=== PATIENT | female | born 1960 | race Caucasian/White ===

== ENCOUNTER 2017-08-28 22:38 | Inpatient (IN) | payer MEDICARE, OTHER ==
[2017-08-28] MEDS ORDERED: MAGNESIUM SULFATE (GM) 50% 2 ML INJ IVPB (23:00)
[2017-08-28] MEDS: ALBUTEROL 0.083% (NEB) 2.5 MG/3 ML AMP HHN (23:11)
[2017-08-28] MEDS: IPRATROPIUM (NEB) 0.5 MG/2.5 ML AMP HHN (23:11)
[2017-08-28 23:35] LABS: ADD MAN DIFF? NO
[2017-08-28 23:36] LABS: BASOPHIL # 0.1 10^3/ul (0.0-0.1); EOSINOPHILS # 0.9 10^3/ul (0.0-0.5); HEMATOCRIT 39.8 % (37.0-47.0); HEMOGLOBIN 12.8 g/dl (12.0-16.0); LYMPHOCYTES # 1.8 10^3/ul (0.8-2.9); LYMPHOCYTES % 16.5 % (15.0-51.0); MEAN CORPUSCULAR HEMOGLOBIN 27.8 pg (29.0-33.0); MEAN CORPUSCULAR HGB CONC 32.2 g/dl (32.0-37.0); MEAN CORPUSCULAR VOLUME 86.3 fl (82.0-101.0); MEAN PLATELET VOLUME 9.5 fl (7.4-10.4); MONOCYTE # 0.9 10^3/ul (0.3-0.9); MONOCYTES % 8.1 % (0.0-11.0); NEUTROPHIL # 7.3 10^3/ul (1.6-7.5); PLATELET COUNT 395 10^3/UL (140-415); RED BLOOD COUNT 4.61 10^6/ul (4.20-5.40); RED CELL DISTRIBUTION WIDTH 13.1 % (11.5-14.5)
[2017-08-28] MEDS: METHYLPREDNISOLONE 125 MG INJ IV (23:42)
[2017-08-28] MEDS: ASPIRIN 325 MG TAB PO (23:42)
[2017-08-28] MEDS: LORAZEPAM 2 MG INJ IV (23:42)
[2017-08-28 23:55] LABS: ANION GAP 15 (8-16); BLOOD UREA NITROGEN 11 mg/dl (7-20); CALCIUM 9.2 mg/dl (8.4-10.2); CARBON DIOXIDE 21 mmol/L (21-31); CHLORIDE 111 mmol/L (97-110); CREATININE 0.76 mg/dl (0.44-1.00); GLUCOSE 134 mg/dl (70-220); POTASSIUM 3.9 mmol/L (3.5-5.1); SODIUM 143 mmol/L (135-144)
[2017-08-29 00:07] LABS: B-TYPE NATRIURETIC PEPTIDE 249 PG/ML (0-125)
[2017-08-29 00:09] LABS: TROPONIN-I < 0.012 ng/ml (0.00-0.12)
[2017-08-29] MEDS: MAG SULFATE 2GM IN 50 ML IVPB (00:15)
[2017-08-29 01:44] LABS: AADO2 Arterial 98.3 mmHg (7.0-24.0); Allen Test ACCEPTAB; Arterial Base Excess -4.5 mmol/L (-3.0-3); Arterial COHb 0.3 % (0.0-3.0); Arterial Fraction of Oxyhgb 95.4 % (93.0-99.0); Arterial HCO3 18.9 mmol/L (22.0-26.0); Arterial MetHb 0.3 % (0.0-1.5); Arterial Total Hemglobin 13.6 g/dl (12.0-18.0); Arterial pCO2 30.4 mmhg (35-45); MODE NASAL CANNULA; Site Left Radial
[2017-08-29] MEDS: ALBUTEROL 0.083% (NEB) 2.5 MG/3 ML AMP HHN (01:49)
[2017-08-29] MEDS: IOHEXOL 100 ML (02:26)
[2017-08-29] MEDS: SOD CHLORIDE 0.9% 100 ML (02:26)
[2017-08-29] MEDS: IOHEXOL 350MG/ML 50 ML BTL (02:26)
[2017-08-29] MEDS ORDERED: ACETAMINOPHEN 325 MG TAB PO ×2 (05:30→06:00)
[2017-08-29] MEDS ORDERED: DOCUSATE SODIUM 100 MG CAP PO (06:00)
[2017-08-29] MEDS ORDERED: NACL 0.9% 3 ML SYG IV (06:00)
[2017-08-29] MEDS ORDERED: ONDANSETRON 4 MG TAB PO (06:00)
[2017-08-29] MEDS ORDERED: BISACODYL (EC) 5 MG TAB PO (06:00)
[2017-08-29] MEDS: ONDANSETRON 4 MG INJ IV (06:09)
[2017-08-29] MEDS: morphine 4 MG/ML VIAL IV (06:10)
[2017-08-29 06:27] LABS: TROPONIN-I < 0.012 ng/ml (0.00-0.12)
[2017-08-29] MEDS: PANTOPRAZOLE (EC) 40 MG TAB PO (07:21)
[2017-08-29 08:19] LABS: CREATINE KINASE 143 IU/L (23-200)
[2017-08-29 08:29] LABS: CK INDEX 0.7; CK-MB 0.99 ng/ml (0.0-2.4)
[2017-08-29] MEDS: VENLAFAXINE (XR) 75 MG CAP PO (09:52)
[2017-08-29] MEDS: ASPIRIN (EC) 81 MG TAB PO (09:52)
[2017-08-29] MEDS ORDERED: HYDROCODONE/APAP (5/325) TAB PO (11:30)
[2017-08-29] MEDS ORDERED: morphine 2 MG INJ IV (11:30)
[2017-08-29] MEDS: FUROSEMIDE 40 MG INJ IV (13:00)
[2017-08-29] MEDS: LEVOFLOXACIN 500MG/D5W (PMX) 100 ML IVPB (13:00)
[2017-08-29] MEDS: LORAZEPAM 1 MG TAB PO (13:06)
[2017-08-29] MEDS: ALBUTEROL/IPRATROPIUM (NEB) 3 ML AMP HHN ×3 (13:09→21:00)
[2017-08-29] MEDS ORDERED: [UNRECOGNIZED DRUG - OTHER] XX (13:30)
[2017-08-29 13:31] LABS: ADD UMIC YES; UR ASCORBIC ACID NEGATIVE (NEGATIVE); UR BILIRUBIN (Dip) NEGATIVE (NEGATIVE); UR BLOOD (Dip) 1+ mg/dL (NEGATIVE); UR CLARITY CLEAR (CLEAR); UR COLOR YELLOW (YELLOW); UR GLUCOSE (Dip) NEGATIVE (NEGATIVE); UR KETONES (Dip) NEGATIVE (NEGATIVE); UR LEUKOCYTE ESTERASE (Dip) 2+ Leu/ul (NEGATIVE); UR MUCUS FEW /HPF (NONE SEEN); UR NITRITE (Dip) NEGATIVE (NEGATIVE); UR RBC 6 /HPF (0-5); UR SPECIFIC GRAVITY (Dip) 1.058 (1.003-1.030); UR SQUAMOUS EPITHELIAL CELL MODERATE /HPF (FEW); UR TOTAL PROTEIN (Dip) NEGATIVE (NEGATIVE); UR UROBILINOGEN (Dip) NEGATIVE (NEGATIVE); UR WBC 4 /HPF (0-5)
[2017-08-29] MEDS: LORAZEPAM 2 MG INJ IV ×2 (14:08→21:03)
[2017-08-29 14:23] LABS: CREATINE KINASE 134 IU/L (23-200)
[2017-08-29 14:36] LABS: CK INDEX 0.9; CK-MB 1.21 ng/ml (0.0-2.4)
[2017-08-29 14:37] LABS: TROPONIN-I < 0.012 ng/ml (0.00-0.12)
[2017-08-29] MEDS: METHYLPREDNISOLONE 40 MG INJ IV ×2 (15:13→21:03)
[2017-08-29] MEDS: ENOXAPARIN 40 MG/0.4 ML SYG SC (15:13)
[2017-08-29 16:36] LABS: AADO2 Arterial 361.2 mmHg (7.0-24.0); Allen Test ACCEPTAB; Arterial Base Excess -1.8 mmol/L (-3.0-3); Arterial Blood Gas Oxygen Sat 97.1 mmHG (95.0-98.0); Arterial COHb 0.1 % (0.0-3.0); Arterial Fraction of Oxyhgb 96.7 % (93.0-99.0); Arterial HCO3 22.5 mmol/L (22.0-26.0); Arterial MetHb 0.3 % (0.0-1.5); Arterial Total Hemglobin 13.6 g/dl (12.0-18.0); MODE MASK - SIMPLE; Site Right Radial
[2017-08-29] MEDS: GABAPENTIN 300 MG CAP PO ×2 (16:58→21:03)
[2017-08-29] MEDS: LATUDA 80 MG TABLET PO (16:59)
[2017-08-29] MEDS: DOCUSATE SODIUM 100 MG CAP PO (21:02)
[2017-08-29] MEDS: MONTELUKAST 10 MG TAB PO (22:45)
[2017-08-29] MEDS: SALMETEROL/FLUTICASONE 250/50 INHA INH (22:45)
[2017-08-30] MEDS: DOCUSATE SODIUM 100 MG CAP PO ×2 (06:33→17:49)
[2017-08-30] MEDS: PANTOPRAZOLE (EC) 40 MG TAB PO (06:33)
[2017-08-30] MEDS: METHYLPREDNISOLONE 40 MG INJ IV ×3 (06:33→22:22)
[2017-08-30] MEDS: ALBUTEROL/IPRATROPIUM (NEB) 3 ML AMP HHN ×4 (08:00→20:04)
[2017-08-30 08:42] LABS: ADD MAN DIFF? NO
[2017-08-30 08:53] LABS: WHITE BLOOD COUNT 17.7 10^3/ul (4.8-10.8)
[2017-08-30 08:53] LABS: BASOPHILS % 0.1 % (0.0-2.0); HEMATOCRIT 39.6 % (37.0-47.0); HEMOGLOBIN 12.7 g/dl (12.0-16.0); LYMPHOCYTES # 1.3 10^3/ul (0.8-2.9); LYMPHOCYTES % 7.2 % (15.0-51.0); MEAN CORPUSCULAR HEMOGLOBIN 27.8 pg (29.0-33.0); MEAN CORPUSCULAR HGB CONC 32.1 g/dl (32.0-37.0); MEAN CORPUSCULAR VOLUME 86.7 fl (82.0-101.0); MEAN PLATELET VOLUME 9.8 fl (7.4-10.4); MONOCYTES % 5.5 % (0.0-11.0); NEUTROPHIL # 15.3 10^3/ul (1.6-7.5); NEUTROPHILS % 86.4 % (39.0-77.0); PLATELET COUNT 451 10^3/UL (140-415); RED BLOOD COUNT 4.57 10^6/ul (4.20-5.40); RED CELL DISTRIBUTION WIDTH 13.3 % (11.5-14.5)
[2017-08-30 09:12] LABS: ALANINE AMINOTRANSFERASE 35 IU/L (13-69); ALBUMIN 4.1 g/dl (3.3-4.9); ALKALINE PHOSPHATASE 83 IU/L (42-121); ASPARTATE AMINO TRANSFERASE 18 IU/L (15-46); BILIRUBIN,INDIRECT 0.1 mg/dl (0-1.1); BILIRUBIN,TOTAL 0.1 mg/dl (0.2-1.3); TOTAL PROTEIN 7.1 g/dl (6.1-8.1)
[2017-08-30 09:14] LABS: ALANINE AMINOTRANSFERASE 34 IU/L (13-69); ALBUMIN 3.8 g/dl (3.3-4.9); ALBUMIN/GLOBULIN RATIO 1.26; ALKALINE PHOSPHATASE 79 IU/L (42-121); ANION GAP 15 (8-16); ASPARTATE AMINO TRANSFERASE 18 IU/L (15-46); BILIRUBIN,INDIRECT 0.2 mg/dl (0-1.1); BILIRUBIN,TOTAL 0.2 mg/dl (0.2-1.3); BLOOD UREA NITROGEN 19 mg/dl (7-20); CALCIUM 10.2 mg/dl (8.4-10.2); CARBON DIOXIDE 26 mmol/L (21-31); CHLORIDE 106 mmol/L (97-110); CHOL/HDL RATIO 4.6 RATIO; CHOLESTEROL 187 mg/dl (100-200); CREATININE 0.71 mg/dl (0.44-1.00); GLUCOSE 116 mg/dl (70-220); HDL CHOLESTEROL 40 mg/dl (37-92); SODIUM 142 mmol/L (135-144); TOTAL PROTEIN 6.8 g/dl (6.1-8.1); TRIGLYCERIDES 118 mg/dl (0-149)
[2017-08-30] MEDS: ASPIRIN (EC) 81 MG TAB PO (09:14)
[2017-08-30] MEDS: GABAPENTIN 300 MG CAP PO (09:14)
[2017-08-30] MEDS: SALMETEROL/FLUTICASONE 250/50 INHA INH ×2 (09:14→20:41)
[2017-08-30] MEDS: VENLAFAXINE (XR) 75 MG CAP PO (09:14)
[2017-08-30] MEDS: LATUDA 80 MG TABLET PO (09:14)
[2017-08-30 09:15] LABS: LDL CHOLESTEROL,CALCULATED 123 mg/dl
[2017-08-30] MEDS: ENOXAPARIN 40 MG/0.4 ML SYG SC (09:19)
[2017-08-30 09:39] LABS: MAGNESIUM 2.1 mg/dl (1.7-2.5)
[2017-08-30 09:43] LABS: THYROID STIMULATING HORMONE < 0.015 MIU/L (0.465-4.680)
[2017-08-30 11:22] LABS: FREE T3 3.36 pg/ml (2.77-5.27)
[2017-08-30 11:44] LABS: IRON 31 ug/dl (35-150)
[2017-08-30 11:54] LABS: % IRON SATURATION 12 % SAT (22-52); TOTAL IRON BINDING CAPACITY 257 ug/dl (241-421)
[2017-08-30] MEDS: LEVOFLOXACIN 500MG/D5W (PMX) 100 ML IVPB (12:37)
[2017-08-30] MEDS: predniSONE 20 MG TAB PO (12:37)
[2017-08-30] MEDS: IBUPROFEN 600 MG TAB PO ×2 (12:37→20:42)
[2017-08-30 13:09] LABS: HEMOGLOBIN A1C 5.8 % (0-5.9)
[2017-08-30 13:31] LABS: FREE T4 (FREE THYROXINE) 1.69 ng/dl (0.64-1.79)
[2017-08-30 15:02] LABS: FERRITIN 39.1 ng/ml (11.1-264.0)
[2017-08-30] MEDS: LORAZEPAM 2 MG INJ IV ×2 (15:13→23:01)
[2017-08-30] MEDS: HYDROmorphONE 1 MG/ML SYG IV (20:41)
[2017-08-30] MEDS: MONTELUKAST 10 MG TAB PO (20:42)
[2017-08-30] MEDS: PREGABALIN 50 MG CAP PO (20:42)
[2017-08-31] MEDS: ALBUTEROL/IPRATROPIUM (NEB) 3 ML AMP HHN ×5 (00:09→20:10)
[2017-08-31] MEDS: PANTOPRAZOLE (EC) 40 MG TAB PO (06:36)
[2017-08-31] MEDS: METHYLPREDNISOLONE 40 MG INJ IV ×3 (06:36→22:34)
[2017-08-31] MEDS: DOCUSATE SODIUM 100 MG CAP PO ×2 (06:36→17:02)
[2017-08-31] MEDS: SALMETEROL/FLUTICASONE 250/50 INHA INH ×2 (09:01→22:34)
[2017-08-31] MEDS: VENLAFAXINE (XR) 75 MG CAP PO (09:03)
[2017-08-31] MEDS: LATUDA 80 MG TABLET PO (09:03)
[2017-08-31] MEDS: predniSONE 20 MG TAB PO (09:04)
[2017-08-31] MEDS: IBUPROFEN 600 MG TAB PO ×3 (09:04→21:16)
[2017-08-31] MEDS: ASPIRIN (EC) 81 MG TAB PO (09:04)
[2017-08-31] MEDS: ENOXAPARIN 40 MG/0.4 ML SYG SC (09:05)
[2017-08-31] MEDS: LORAZEPAM 2 MG INJ IV ×2 (09:11→17:03)
[2017-08-31 10:28] LABS: ADD MAN DIFF? NO
[2017-08-31 10:35] LABS: WHITE BLOOD COUNT 14.5 10^3/ul (4.8-10.8)
[2017-08-31 10:35] LABS: BASOPHILS % 0.1 % (0.0-2.0); EOSINOPHILS % 0.1 % (0.0-7.0); HEMATOCRIT 40.9 % (37.0-47.0); HEMOGLOBIN 13.1 g/dl (12.0-16.0); LYMPHOCYTES # 1.3 10^3/ul (0.8-2.9); LYMPHOCYTES % 8.8 % (15.0-51.0); MEAN CORPUSCULAR HEMOGLOBIN 27.6 pg (29.0-33.0); MEAN CORPUSCULAR VOLUME 86.1 fl (82.0-101.0); MEAN PLATELET VOLUME 9.7 fl (7.4-10.4); MONOCYTE # 0.8 10^3/ul (0.3-0.9); MONOCYTES % 5.4 % (0.0-11.0); NEUTROPHIL # 12.2 10^3/ul (1.6-7.5); NEUTROPHILS % 84.2 % (39.0-77.0); PLATELET COUNT 465 10^3/UL (140-415); RED BLOOD COUNT 4.75 10^6/ul (4.20-5.40); RED CELL DISTRIBUTION WIDTH 13.3 % (11.5-14.5)
[2017-08-31 10:51] LABS: ANION GAP 16 (8-16); BLOOD UREA NITROGEN 27 mg/dl (7-20); CALCIUM 9.5 mg/dl (8.4-10.2); CARBON DIOXIDE 25 mmol/L (21-31); CHLORIDE 104 mmol/L (97-110); CREATININE 0.85 mg/dl (0.44-1.00); GLUCOSE 128 mg/dl (70-220); POTASSIUM 4.3 mmol/L (3.5-5.1); SODIUM 141 mmol/L (135-144)
[2017-08-31] MEDS: LEVOFLOXACIN 500MG/D5W (PMX) 100 ML IVPB (11:02)
[2017-08-31] MEDS: FERROUS SULFATE (EC) 325 MG TAB PO (11:02)
[2017-08-31 14:26] LABS: THYROID STIMULATING HORMONE < 0.015 MIU/L (0.465-4.680)
[2017-08-31] MEDS: PREGABALIN 50 MG CAP PO (21:00)
[2017-08-31] MEDS: MONTELUKAST 10 MG TAB PO (21:16)
[2017-09-01] MEDS: DOCUSATE SODIUM 100 MG CAP PO ×2 (05:57→17:16)
[2017-09-01] MEDS: PANTOPRAZOLE (EC) 40 MG TAB PO (05:57)
[2017-09-01] MEDS: METHYLPREDNISOLONE 40 MG INJ IV ×2 (05:57→14:27)
[2017-09-01] MEDS: ALBUTEROL/IPRATROPIUM (NEB) 3 ML AMP HHN ×2 (08:18→14:05)
[2017-09-01] MEDS: SALMETEROL/FLUTICASONE 250/50 INHA INH (09:26)
[2017-09-01] MEDS: ASPIRIN (EC) 81 MG TAB PO (09:27)
[2017-09-01] MEDS: IBUPROFEN 600 MG TAB PO ×2 (09:27→12:19)
[2017-09-01] MEDS: FERROUS SULFATE (EC) 325 MG TAB PO (09:27)
[2017-09-01] MEDS: VENLAFAXINE (XR) 75 MG CAP PO (09:27)
[2017-09-01] MEDS: predniSONE 20 MG TAB PO (09:28)
[2017-09-01] MEDS: ENOXAPARIN 40 MG/0.4 ML SYG SC (09:31)
[2017-09-01] MEDS: LATUDA 80 MG TABLET PO (09:32)
[2017-09-01] MEDS: INFLUENZA VIRUS VACCINE 0.5 ML (DISPENSING) IM* (09:35)
[2017-09-01] MEDS: LORAZEPAM 2 MG INJ IV (09:43)
[2017-09-01] MEDS: LEVOFLOXACIN 500MG/D5W (PMX) 100 ML IVPB (12:10)
== END 2017-09-01 17:20 | disposition home or self-care (01) | DRG 190 ==
LOC: E/R 22:38 → PP2 08-31 20:40 → MS4 08-29 18:58
DX: J44.1 Chronic obstructive pulmonary disease with (acute) exacerbation (principal); J96.20 Acute and chronic respiratory failure, unspecified whether with hypoxia or hypercapnia; J18.9 Pneumonia, unspecified organism; M84.48XA Pathological fracture, other site, initial encounter for fracture; J44.0 Chronic obstructive pulmonary disease with (acute) lower respiratory infection; Z87.891 Personal history of nicotine dependence; G25.81 Restless legs syndrome; I27.20 Pulmonary hypertension, unspecified; F41.9 Anxiety disorder, unspecified; E03.9 Hypothyroidism, unspecified
CPT/HCPCS: 36415; 36600; 71010; 71275; 80048; 80053; 80061; 80076; 81001; 82550; 82553; 82728; 82803; 83036; 83540; 83735; 83880; 84439; 84443; 84481; 84484; 85025; 87086; 90686; 93005; 93306; 94640; 94644; 94645; 94660; 94664; 96372; 96374; 96375; 99291-25